=== PATIENT | male | born 1950 | race Two or more races ===

== ENCOUNTER → 2024-08-27 | Outpatient (CLI) | payer BC, SELFPAY ==
[2024-08-27 12:12] LABS: Basophils % (Auto) 0 % (0-2.5); Eosinophils # (Auto) 0.1 Thou/mm3 (0.0-0.5); Eosinophils % (Auto) 1 % (0-10); Hematocrit 44.8 % (41.0-53.0); Hemoglobin 15.6 g/dL (13.5-16.0); Immature Granulocytes % (Auto) 1 % (0-0); Immature Granulocytes Auto 0.06 Thou/mm3 (0.00-0.00); Lymphocytes # (Auto) 2.2 Thou/mm3 (1.0-4.8); Lymphocytes % (Auto) 24 % (10-50); Mean Corpuscular HGB Conc 34.8 g/dl (31.0-37.0); Mean Corpuscular Hemoglobin 31.2 pg (25.0-35.0); Mean Corpuscular Volume 90 fL (80-100); Monocytes # (Auto) 0.9 Thou/mm3 (0.0-0.8); Monocytes % (Auto) 10 % (0-12); Neutrophils # (Auto) 5.9 Thou/mm3 (1.8-7.7); Neutrophils % (Auto) 64 % (37-80); Nucleated Red Blood Cell % 0 /100 WBC (0); Platelet Count 199 Thou/mm3 (140-440); RDW Standard Deviation 43.6 fL (35.1-43.9); White Blood Count 9.2 Thou/mm3 (3.8-10.6)
[2024-08-27 12:31] LABS: Prostate Specific Antigen 0.28 ng/mL (0-4.00)
[2024-08-27 12:33] LABS: Vitamin B12 703 pg/mL (211-911); Vitamin D 25 Hydroxy Total 27.6 ng/mL (7.3-40.2)
[2024-08-27 12:38] LABS: Alanine Aminotransferase 33 U/L (10-49); Albumin/Globulin Ratio 2.3 (1.2-2.2); Alkaline Phosphatase 82 U/L (46-116); Anion Gap 8 (7-16); Aspartate Amino Transferase 11 U/L (0-34); BUN/Creatinine Ratio 18 Ratio (12-20); Bilirubin,Total 0.9 mg/dL (0.3-1.2); Blood Urea Nitrogen 21 mg/dL (9-23); Carbon Dioxide 26.1 mMol/L (20.0-31.0); Cardiac Risk Estimate 4.1 RATIO (4.0-6.7); Chloride 103 mMol/L (98-107); Cholesterol 208 mg/dL (132-200); Creatinine (Component) 1.2 mg/dL (0.6-1.3); Free T4 (Free Thyroxine) 1.06 ng/dL (0.89-1.76); Globulin 2.2 gm/dL (2.3-3.5); Glucose 148 mg/dL (74-106); HDL Cholesterol 51 mg/dL (40-60); LDL Cholesterol,Calculated 125 mg/dL (0-130); Osmolality,Calculated 279 (275-295); Potassium 4.2 mMol/L (3.4-5.1); Sodium 137 mMol/L (136-145); Thyroid Stimulating Hormone 5.84 uIU/mL (0.55-4.78); Total Protein 7.2 gm/dL (5.7-8.2); Triglycerides 162 mg/dL (30-150); Uric Acid 6.7 mg/dL (3.7-9.2); eGFR > 60 See Note
[2024-08-27 12:43] LABS: Collection Type, Urine Clean Catch
[2024-08-27 12:46] LABS: Glucose Estimated Average 160 mg/dL (80-131); Hemoglobin A1C 7.2 % Hgb (4.8-6.0)
[2024-08-27 13:36] LABS: Bilirubin,Urine Negative (Negative); Blood,Urine Negative (Negative); Clarity,Urine Clear (Clear/Hazy); Color,Urine Lt-Yellow (Lt Yel-Yel); Glucose, Urine 4+ (Negative); Ketones,Urine Negative (Negative); Leukocyte Esterase,Urine Negative (Negative); Nitrite,Urine Negative (Negative); PH,Urine 6.5 (5.0-7.0); Protein,Urine Negative (Neg - Trace); RBC,Urine 3 /hpf (0-3); Specific Gravity,Urine 1.024 (1.001-1.035); Squamous Epithelial Cell,Urine < 1 /hpf (0-5); Urobilinogen,Urine Negative mg/dL (0.0-1.0); WBC,Urine 1 /hpf (0-5)
== END | disposition home or self-care (01) ==
PROVIDERS: PCP Internal Medicine; Referring Provider Internal Medicine; Visit Provider Internal Medicine
DX: Z00.00 Encounter for general adult medical examination without abnormal findings (principal); I10 Essential (primary) hypertension; E11.9 Type 2 diabetes mellitus without complications; E03.9 Hypothyroidism, unspecified
CPT/HCPCS: 36415; 80053; 80061; 81001; 82306; 82607; 83036; 84153; 84439; 84443; 84550; 85025

== ENCOUNTER → 2025-06-24 | Outpatient (CLI) | payer BC, MEDICARE, SELFPAY ==
[2025-06-24 15:03] LABS: Collection Type, Urine Clean Catch; Squamous Epithelial Cell,Urine 0 /hpf (0-5)
[2025-06-24 15:27] LABS: Basophils # (Auto) 0.1 Thou/mm3 (0.0-0.2); Basophils % (Auto) 1 % (0-2.5); Eosinophils # (Auto) 0.1 Thou/mm3 (0.0-0.5); Eosinophils % (Auto) 1 % (0-10); Hematocrit 43.8 % (41.0-53.0); Hemoglobin 14.6 g/dL (13.5-16.0); Immature Granulocytes Auto 0.05 Thou/mm3 (0.00-0.00); Lymphocytes # (Auto) 2.1 Thou/mm3 (1.0-4.8); Lymphocytes % (Auto) 26 % (10-50); Mean Corpuscular HGB Conc 33.3 g/dl (31.0-37.0); Mean Corpuscular Hemoglobin 30.4 pg (25.0-35.0); Mean Corpuscular Volume 91 fL (80-100); Monocytes # (Auto) 0.8 Thou/mm3 (0.0-0.8); Monocytes % (Auto) 10 % (0-12); Neutrophils # (Auto) 5.0 Thou/mm3 (1.8-7.7); Neutrophils % (Auto) 62 % (37-80); Nucleated Red Blood Cell # 0.00 Thou/mm3 (0.00-0.00); Nucleated Red Blood Cell % 0 /100 WBC (0); Platelet Count 227 Thou/mm3 (140-440); RDW Standard Deviation 43.2 fL (35.1-43.9); Red Blood Count 4.80 Miln/mm3 (4.50-5.90); White Blood Count 8.0 Thou/mm3 (3.8-10.6)
[2025-06-24 15:34] LABS: Bilirubin,Urine Negative (Negative); Blood,Urine Negative (Negative); Clarity,Urine Clear (Clear/Hazy); Color,Urine Yellow (Lt Yel-Yel); Glucose, Urine Negative (Negative); Hyaline Casts,Urine < 1 /hpf (0-1); Ketones,Urine Negative (Negative); Leukocyte Esterase,Urine Negative (Negative); Nitrite,Urine Negative (Negative); PH,Urine 6.0 (5.0-7.0); Protein,Urine Negative (Neg - Trace); RBC,Urine 2 /hpf (0-3); Specific Gravity,Urine 1.017 (1.001-1.035); Urobilinogen,Urine Negative mg/dL (0.0-1.0); WBC,Urine 5 /hpf (0-5)
[2025-06-24 15:37] LABS: Glucose Estimated Average 166 mg/dL (80-131); Hemoglobin A1C 7.4 % Hgb (4.8-6.0)
[2025-06-24 15:41] LABS: Vitamin B12 297 pg/mL (211-911); Vitamin D 25 Hydroxy Total 30.1 ng/mL (7.3-40.2)
[2025-06-24 15:44] LABS: Creatinine MALB Rnd Ur 143 mg/dL (30-125); Microalbumin Creat Ratio 13 mg/gCrea (<30); Microalbumin, Random Urine 19 mg/L (0-300)
[2025-06-24 15:47] LABS: Prostate Specific Antigen 0.69 ng/mL (0-4.00)
[2025-06-24 15:49] LABS: Alanine Aminotransferase 17 U/L (10-49); Albumin, Serum 4.6 gm/dL (3.4-4.8); Albumin/Globulin Ratio 1.9 (1.2-2.2); Alkaline Phosphatase 67 U/L (46-116); Anion Gap 11 (7-16); Aspartate Amino Transferase 18 U/L (0-34); BUN/Creatinine Ratio 13 Ratio (12-20); Bilirubin,Total 1.1 mg/dL (0.3-1.2); Blood Urea Nitrogen 16 mg/dL (9-23); Calcium 9.6 mg/dL (8.3-10.6); Calcium (Corrected) 9.6 mg/dL (8.5-10.1); Carbon Dioxide 27.1 mMol/L (20.0-31.0); Cardiac Risk Estimate 4.6 RATIO (4.0-6.7); Chloride 105 mMol/L (98-107); Cholesterol 202 mg/dL (132-200); Creatinine (Component) 1.2 mg/dL (0.6-1.3); Free T4 (Free Thyroxine) 1.34 ng/dL (0.89-1.76); Globulin 2.4 gm/dL (2.3-3.5); Glucose 130 mg/dL (74-106); HDL Cholesterol 44 mg/dL (40-60); LDL Cholesterol,Calculated 109 mg/dL (0-130); Osmolality,Calculated 288 (275-295); Potassium 4.4 mMol/L (3.4-5.1); Sodium 143 mMol/L (136-145); Thyroid Stimulating Hormone 1.51 uIU/mL (0.55-4.78); Total Protein 7.0 gm/dL (5.7-8.2); Triglycerides 244 mg/dL (30-150); Uric Acid 7.6 mg/dL (3.7-9.2); eGFR > 60 See Note
== END | disposition home or self-care (01) ==
PROVIDERS: PCP Internal Medicine; Referring Provider Internal Medicine; Visit Provider Internal Medicine
DX: Z00.00 Encounter for general adult medical examination without abnormal findings (principal); I10 Essential (primary) hypertension; E11.9 Type 2 diabetes mellitus without complications; E03.9 Hypothyroidism, unspecified
CPT/HCPCS: 36415; 80053; 80061; 81001; 82043; 82306; 82570; 82607; 83036; 84153; 84439; 84443; 84550; 85025

== ENCOUNTER → 2025-07-01 | Outpatient (CLI) | payer BC, MEDICARE, SELFPAY ==
[2025-07-01 15:01] LABS: OBS Performed By LAB; OBS QC OK? Yes
[2025-07-01 17:28] LABS: OBS Developer Expiration Date 2-28-27; OBS Developer Lot # 4-24-551749; Occult Blood, Stool Negative (Negative); Occult Blood, Stool #2 Negative (Negative); Occult Blood, Stool #3 Negative (Negative)
== END | disposition home or self-care (01) ==
PROVIDERS: Referring Provider Internal Medicine; Visit Provider Internal Medicine
DX: Z12.11 Encounter for screening for malignant neoplasm of colon (principal)
CPT/HCPCS: 82270